=== PATIENT | male | born 1950 | race Caucasian/White ===

== ENCOUNTER → 2021-06-11 | Outpatient (CLI) | payer MEDICARE, BC ==
[~2021-06-11] MED LIST: ACETAMINOPHEN-H1 TA2 PO; AMBIEN10 MG PO; ATORVASTATIN CA80 MG PO; CREON 120000 U-1 ECC PO; CYCLOBENZAPRINE10 M1 PO; CYMBALTA60 M1 PO; DIAMOX 250MG250 MG PO; FLOMAX0.4 MG PO; GLUCOPHAGE PO; GOOD NEIGHBOR325 MG PO; MEDI-FIRST ASP325 MG PO; METFORMIN ER500 MG PO; MOBIC15 M1 PO; VIBRAMYCIN HYC100 MG PO; ZESTRIL10 M1 PO
== END ==
LOC: RAD 10:00
DX: R22.42 Localized swelling, mass and lump, left lower limb (principal)

== ENCOUNTER → 2021-07-13 | Outpatient (CLI) | payer MEDICARE, BC ==
[2021-07-13 18:39] LABS: ALBUMIN 3.5 g/dL (3.4-4.8); POTASSIUM 3.8 mmol/L (3.5-5.1)
[2021-07-13 18:40] LABS: CALCIUM 9.1 mg/dL (8.3-10.5)
[2021-07-13 18:42] LABS: TOTAL PROTEIN 6.7 g/dL (6.2-8.1)
[2021-07-13 18:47] LABS: BASO # 0.03 (0.02-0.10); EOS # 0.09 (0.04-0.40); EOS % 1.4 % (0.0-4.0); HEMATOCRIT 32.1 % (42.0-52.0); HEMOGLOBIN 9.9 g/dL (13.5-18.0); LYMPH# 1.18 (1.50-4.00); MEAN CELL VOLUME 96 fl (78-100); MEAN CORPUSCULAR HEMOGLOBIN 30 pg (27-31); MEAN CORPUSCULAR HGB CONC 31 g/dL (33-37); MEAN PLATELET VOLUME 9.6 fl (7.4-10.4); MONO # 0.56 (0.20-0.80); NEU # 4.77 (1.40-6.50); PLATELET COUNT 284 K/mm3 (130-400); RED BLOOD COUNT 3.34 M/mm3 (4.20-5.60); RED CELL DISTRIBUTION WIDTH 13.2 % (11.5-14.5); WHITE BLOOD COUNT 6.7 K/mm3 (4.8-10.8)
== END ==
LOC: LAB 17:56
PROVIDERS: Nurse Practitioner
DX: T81.42XA Infection following a procedure, deep incisional surgical site, initial encounter (principal)

== ENCOUNTER → 2021-07-16 | Outpatient (CLI) | payer MEDICARE, BC | LOC: LAB 06:13 | DX: T81.42XA Infection following a procedure, deep incisional surgical site, initial encounter (principal); R89.5 Abnormal microbiological findings in specimens from other organs, systems and tissues ==

== ENCOUNTER → 2021-07-20 | Outpatient (CLI) | payer MEDICARE, BC ==
[2021-07-20 06:32] LABS: BASO # 0.04 (0.02-0.10); EOS # 0.16 (0.04-0.40); EOS % 3.6 % (0.0-4.0); HEMATOCRIT 33.1 % (42.0-52.0); HEMOGLOBIN 10.4 g/dL (13.5-18.0); LYMPH# 0.87 (1.50-4.00); MEAN CELL VOLUME 94 fl (78-100); MEAN CORPUSCULAR HEMOGLOBIN 30 pg (27-31); MEAN CORPUSCULAR HGB CONC 31 g/dL (33-37); MEAN PLATELET VOLUME 9.6 fl (7.4-10.4); MONO # 0.53 (0.20-0.80); NEU # 2.87 (1.40-6.50); PLATELET COUNT 279 K/mm3 (130-400); RED BLOOD COUNT 3.53 M/mm3 (4.20-5.60); RED CELL DISTRIBUTION WIDTH 14.2 % (11.5-14.5); WHITE BLOOD COUNT 4.5 K/mm3 (4.8-10.8)
[2021-07-20 06:54] LABS: ALBUMIN 3.5 g/dL (3.4-4.8); POTASSIUM 3.9 mmol/L (3.5-5.1)
[2021-07-20 06:59] LABS: TOTAL PROTEIN 6.6 g/dL (6.2-8.1)
[2021-07-20 07:37] LABS: ERYTHROCYTE SEDIMENTATION RATE 34 mm/hr (0-20)
== END ==
LOC: LAB 06:08
PROVIDERS: Internal Medicine Infectious Disease
DX: T81.42XA Infection following a procedure, deep incisional surgical site, initial encounter (principal); R89.5 Abnormal microbiological findings in specimens from other organs, systems and tissues

== ENCOUNTER → 2021-07-23 | Outpatient (CLI) | payer MEDICARE, BC | LOC: LAB 07:48 | DX: T84.54XA Infection and inflammatory reaction due to internal left knee prosthesis, initial encounter (principal) ==

== ENCOUNTER → 2021-07-27 | Outpatient (CLI) | payer MEDICARE, BC ==
[2021-07-27 08:02] LABS: BASO # 0.07 (0.02-0.10); EOS # 0.15 (0.04-0.40); EOS % 3.3 % (0.0-4.0); HEMATOCRIT 36.5 % (42.0-52.0); HEMOGLOBIN 11.2 g/dL (13.5-18.0); LYMPH# 0.92 (1.50-4.00); MEAN CELL VOLUME 97 fl (78-100); MEAN CORPUSCULAR HEMOGLOBIN 30 pg (27-31); MEAN CORPUSCULAR HGB CONC 31 g/dL (33-37); MEAN PLATELET VOLUME 9.8 fl (7.4-10.4); MONO # 0.37 (0.20-0.80); NEU # 2.96 (1.40-6.50); PLATELET COUNT 236 K/mm3 (130-400); RED BLOOD COUNT 3.78 M/mm3 (4.20-5.60); RED CELL DISTRIBUTION WIDTH 14.6 % (11.5-14.5); WHITE BLOOD COUNT 4.5 K/mm3 (4.8-10.8)
[2021-07-27 08:03] LABS: ALBUMIN 3.7 g/dL (3.4-4.8); POTASSIUM 4.3 mmol/L (3.5-5.1)
[2021-07-27 08:04] LABS: CALCIUM 9.4 mg/dL (8.3-10.5)
[2021-07-27 08:07] LABS: TOTAL BILIRUBIN 1.1 mg/dL (0.2-1.2)
[2021-07-27 09:06] LABS: ERYTHROCYTE SEDIMENTATION RATE 27 mm/hr (0-20)
== END ==
LOC: LAB 07:27
PROVIDERS: Nurse Practitioner
DX: T81.42XA Infection following a procedure, deep incisional surgical site, initial encounter (principal); R89.5 Abnormal microbiological findings in specimens from other organs, systems and tissues

== ENCOUNTER → 2021-08-03 | Outpatient (CLI) | payer MEDICARE, BC ==
[2021-08-03 19:11] LABS: BASO # 0.08 K/mm3 (0.02-0.10); EOS # 0.11 K/mm3 (0.04-0.40); EOS % 2.4 % (0.0-4.0); HEMATOCRIT 38.8 % (42.0-52.0); LYMPH# 1.19 K/mm3 (1.50-4.00); MEAN CELL VOLUME 95 fl (78-100); MEAN CORPUSCULAR HEMOGLOBIN 29 pg (27-31); MEAN CORPUSCULAR HGB CONC 31 g/dL (33-37); MEAN PLATELET VOLUME 10.1 fl (7.4-10.4); MONO # 0.39 K/mm3 (0.20-0.80); NEU # 2.83 K/mm3 (1.40-6.50); PLATELET COUNT 253 K/mm3 (130-400); RED BLOOD COUNT 4.08 M/mm3 (4.20-5.60); RED CELL DISTRIBUTION WIDTH 14.4 % (11.5-14.5); WHITE BLOOD COUNT 4.6 K/mm3 (4.8-10.8)
[2021-08-03 19:15] LABS: ALBUMIN 3.9 g/dL (3.4-4.8); POTASSIUM 3.9 mmol/L (3.5-5.1); SODIUM 140 mmol/L (136-145)
[2021-08-03 19:16] LABS: CALCIUM 9.3 mg/dL (8.3-10.5)
[2021-08-03 19:17] LABS: GLUCOSE 118 mg/dL (75-110); TOTAL PROTEIN 7.1 g/dL (6.2-8.1)
[2021-08-03 19:18] LABS: CARBON DIOXIDE 18 mmol/L (23-31)
[2021-08-03 19:19] LABS: TOTAL BILIRUBIN 0.6 mg/dL (0.2-1.2)
[2021-08-03 19:23] LABS: AST-SGOT 13 U/L (5-34)
[2021-08-03 19:24] LABS: ALT/SGPT 12 U/L (0-55)
[2021-08-03 20:45] LABS: ERYTHROCYTE SEDIMENTATION RATE 20 mm/hr (0-20)
== END ==
LOC: LAB 17:55
PROVIDERS: Orthopaedic Surgery Sports Medicine
DX: T84.54XA Infection and inflammatory reaction due to internal left knee prosthesis, initial encounter (principal); R89.5 Abnormal microbiological findings in specimens from other organs, systems and tissues

== ENCOUNTER → 2021-08-10 | Outpatient (CLI) | payer MEDICARE, BC ==
[2021-08-10 18:39] LABS: BASO # 0.07 K/mm3 (0.02-0.10); EOS % 1.6 % (0.0-4.0); HEMATOCRIT 41.4 % (42.0-52.0); HEMOGLOBIN 12.8 g/dL (13.5-18.0); LYMPH# 1.29 K/mm3 (1.50-4.00); MEAN CELL VOLUME 95 fl (78-100); MEAN CORPUSCULAR HEMOGLOBIN 29 pg (27-31); MEAN CORPUSCULAR HGB CONC 31 g/dL (33-37); MONO # 0.49 K/mm3 (0.20-0.80); NEU # 4.41 K/mm3 (1.40-6.50); PLATELET COUNT 257 K/mm3 (130-400); RED BLOOD COUNT 4.36 M/mm3 (4.20-5.60); RED CELL DISTRIBUTION WIDTH 14.6 % (11.5-14.5); WHITE BLOOD COUNT 6.4 K/mm3 (4.8-10.8)
[2021-08-10 18:44] LABS: POTASSIUM 4.1 mmol/L (3.5-5.1); SODIUM 139 mmol/L (136-145)
[2021-08-10 18:45] LABS: CALCIUM 9.9 mg/dL (8.3-10.5)
[2021-08-10 18:46] LABS: GLUCOSE 119 mg/dL (75-110); TOTAL PROTEIN 7.2 g/dL (6.2-8.1)
[2021-08-10 18:47] LABS: CARBON DIOXIDE 19 mmol/L (23-31)
[2021-08-10 18:48] LABS: TOTAL BILIRUBIN 0.6 mg/dL (0.2-1.2)
[2021-08-10 18:52] LABS: AST-SGOT 13 U/L (5-34)
[2021-08-10 18:53] LABS: ALT/SGPT 12 U/L (0-55)
[2021-08-10 20:08] LABS: ERYTHROCYTE SEDIMENTATION RATE 16 mm/hr (0-20)
== END ==
LOC: LAB 18:02
PROVIDERS: Internal Medicine Infectious Disease
DX: T81.42XA Infection following a procedure, deep incisional surgical site, initial encounter (principal); T84.54XA Infection and inflammatory reaction due to internal left knee prosthesis, initial encounter

== ENCOUNTER → 2021-08-17 | Outpatient (CLI) | payer MEDICARE, BC ==
[2021-08-17 19:00] LABS: BASO # 0.04 K/mm3 (0.02-0.10); EOS # 0.15 K/mm3 (0.04-0.40); EOS % 2.6 % (0.0-4.0); HEMATOCRIT 42.2 % (42.0-52.0); LYMPH# 1.15 K/mm3 (1.50-4.00); MEAN CELL VOLUME 94 fl (78-100); MEAN CORPUSCULAR HEMOGLOBIN 29 pg (27-31); MEAN CORPUSCULAR HGB CONC 31 g/dL (33-37); MEAN PLATELET VOLUME 10.2 fl (7.4-10.4); MONO # 0.49 K/mm3 (0.20-0.80); NEU # 3.86 K/mm3 (1.40-6.50); PLATELET COUNT 243 K/mm3 (130-400); RED BLOOD COUNT 4.48 M/mm3 (4.20-5.60); RED CELL DISTRIBUTION WIDTH 14.3 % (11.5-14.5); WHITE BLOOD COUNT 5.7 K/mm3 (4.8-10.8)
[2021-08-17 19:06] LABS: POTASSIUM 4.1 mmol/L (3.5-5.1)
[2021-08-17 19:09] LABS: TOTAL PROTEIN 7.2 g/dL (6.2-8.1)
[2021-08-17 19:10] LABS: TOTAL BILIRUBIN 0.5 mg/dL (0.2-1.2)
[2021-08-17 20:56] LABS: ERYTHROCYTE SEDIMENTATION RATE 5 mm/hr (0-20)
== END ==
LOC: LAB 17:58
PROVIDERS: Internal Medicine Infectious Disease
DX: T84.54XA Infection and inflammatory reaction due to internal left knee prosthesis, initial encounter (principal)

== ENCOUNTER 2021-08-19 17:52 | Outpatient (RCR) | payer MEDICARE, BC ==
[2021-07-13 18:30] VITALS: BP 118/59
[2021-07-13 20:00] VITALS: BP 120/55
[2021-07-14 06:19] VITALS: BP 133/57
[2021-07-14 08:00] VITALS: BP 145/60
[2021-07-14 17:59] VITALS: BP 121/66
[2021-07-14 19:30] VITALS: BP 117/54
[2021-07-15 06:20] VITALS: BP 114/56
[2021-07-15 08:10] VITALS: BP 133/78
[2021-07-15 18:00] VITALS: BP 103/48
--- NOTE | 2021-07-15 18:00 | NUR ---
Ice pack provided to L knee per request. Encouraged PO fluids. B/P 103/48. Denies Sx.
[2021-07-15 19:24] VITALS: BP 121/76
[2021-07-16 06:25] VITALS: BP 122/67
[2021-07-16 08:00] VITALS: BP 130/61
[2021-07-16 17:53] VITALS: BP 108/52
[2021-07-16 19:54] VITALS: BP 136/60
--- NOTE | 2021-07-17 06:15 | NUR ---
Ice pack and warm blanket provided.
[2021-07-17 06:24] VITALS: BP 117/53
[2021-07-17 07:50] VITALS: BP 125/70
[2021-07-17 17:35] VITALS: BP 106/48
[2021-07-17 19:28] VITALS: BP 110/60
[2021-07-18 06:17] VITALS: BP 123/59
[2021-07-18 18:15] VITALS: BP 99/45
[2021-07-18 19:18] VITALS: BP 103/50
[2021-07-19 06:14] VITALS: BP 135/62
[2021-07-19 17:35] VITALS: BP 118/72
[2021-07-20 06:18] VITALS: BP 121/66
--- NOTE | 2021-07-20 07:53 | NUR ---
patient's labwork results faxed to per order.
--- NOTE | 2021-07-20 09:45 | NUR ---
had left message with 's office regarding patient's vancomycin trough. received call back from komal cotto. new orders received to change patient's dose to 2gm one time daily and recheck trough 07/23. patient's called and notified of new orders. patient and were very happy and relieved about the change in frequency to one time a day.
[2021-07-21 07:51] VITALS: BP 131/67
[2021-07-21 09:55] VITALS: BP 142/67
[2021-07-22 07:57] VITALS: BP 117/58
[2021-07-22 10:18] VITALS: BP 135/69
[2021-07-23 07:49] VITALS: BP 124/78
[2021-07-23 10:05] VITALS: BP 116/52
[2021-07-24 07:30] VITALS: BP 145/69
[2021-07-24 09:09] VITALS: BP 121/58
[2021-07-25 07:33] VITALS: BP 150/64
[2021-07-25 08:50] VITALS: BP 106/55
[2021-07-25 19:26] VITALS: BP 123/63
[2021-07-25 20:25] VITALS: BP 112/58
[2021-07-26 10:02] VITALS: BP 120/54
[2021-07-26 19:35] VITALS: BP 109/40
[2021-07-26 20:47] VITALS: BP 114/55
[2021-07-27 08:41] VITALS: BP 110/68
[2021-07-27 19:51] VITALS: BP 127/69
[2021-07-27 19:52] VITALS: BP 127/69
--- NOTE | 2021-07-27 20:55 | NUR ---
Pt. arrived at 193 for Vanco infusion. Pt. roomed in . PICC accessed per protocol. Both ports with brisk blood return and flushed easily. Vanco infusion completed. Pt. reports he will return tomorrow a.m. for another infusion. Pt. discharged from outpatient visit at 2054.
[2021-07-28 07:29] VITALS: BP 133/60
[2021-07-28 08:26] VITALS: BP 137/66
[2021-07-28 19:28] VITALS: BP 116/61
[2021-07-28 20:34] VITALS: BP 102/61
[2021-07-29 07:35] VITALS: BP 120/55
[2021-07-29 08:35] VITALS: BP 127/57
[2021-07-29 19:30] VITALS: BP 108/53
[2021-07-29 20:30] VITALS: BP 110/67
[2021-07-30 08:43] VITALS: BP 129/72
[2021-07-31 16:18] VITALS: BP 102/58
[2021-08-01 18:02] VITALS: BP 96/58
[2021-08-02 18:00] VITALS: BP 114/58
[2021-08-03 18:26] VITALS: BP 120/62
[2021-08-04 18:05] VITALS: BP 112/63
[2021-08-05 16:00] VITALS: BP 122/75
[2021-08-06 18:00] VITALS: BP 127/69
[2021-08-07 18:10] VITALS: BP 107/65
[2021-08-08 18:00] VITALS: BP 110/70
[2021-08-09 17:55] VITALS: BP 104/65
[2021-08-10 18:00] VITALS: BP 94/59
[2021-08-11 18:00] VITALS: BP 103/64
[2021-08-12 18:00] VITALS: BP 136/68
[2021-08-13 18:04] VITALS: BP 111/60
[2021-08-14 18:17] VITALS: BP 123/70
[2021-08-15 18:12] VITALS: BP 127/68
[2021-08-16 18:04] VITALS: BP 134/70
[2021-08-17 18:12] VITALS: BP 117/66
[2021-08-18 18:10] VITALS: BP 102/65
[~2021-08-19] VITALS: Ht 185.4 cm; Wt 93.2 kg
[~2021-08-19 17:52] MED LIST changes: -ACETAMINOPHEN-H1 TA2 PO; -CREON 120000 U-1 ECC PO; -CYCLOBENZAPRINE10 M1 PO; -MEDI-FIRST ASP325 MG PO; -METFORMIN ER500 MG PO; -VIBRAMYCIN HYC100 MG PO
[2021-08-19 18:04] VITALS: BP 121/69
--- NOTE | 2021-08-20 13:35 | NUR ---
F/U WITH INFECTIOUS DISEASE TODAY. ORDER RECEIVED TO DC PICC TODAY. PATIENT CALLS TO REPORT HE WAS SENT TO [facility] TO HAVE PICC REMOVED.
== END 2021-08-19 20:00 | disposition home or self-care (01) ==
LOC: AMSURD 17:52
DX: T81.42XA Infection following a procedure, deep incisional surgical site, initial encounter (principal); B95.7 Other staphylococcus as the cause of diseases classified elsewhere
CPT/HCPCS: J0878; J3370; J7040; J7050

== ENCOUNTER 2021-08-25 17:49 | Emergency (ER) | payer MEDICARE, BC ==
[~2021-08-25] VITALS: Ht 185.4 cm; Wt 90.9 kg
[2021-08-25] MEDS ORDERED: VIBRAMYCIN HYC100 MG PO (18:19)
[2021-08-25] MEDS ORDERED: METFORMIN ER500 MG PO (18:20)
[2021-08-25] MEDS ORDERED: ACETAMINOPHEN-H1 TA2 PO (18:21)
[2021-08-25] MEDS ORDERED: MEDI-FIRST ASP325 MG PO (18:21)
[2021-08-25] MEDS ORDERED: CREON 120000 U-1 ECC PO (18:22)
[2021-08-25] MEDS ORDERED: CYCLOBENZAPRINE10 M1 PO (20:14)
[2021-08-25 20:34] VITALS: BP 132/78
== END 2021-08-25 20:34 | disposition home or self-care (01) ==
LOC: ED 17:49
DX: M54.50 Low back pain, unspecified (principal); F32.A Depression, unspecified; E78.5 Hyperlipidemia, unspecified; E11.9 Type 2 diabetes mellitus without complications; I10 Essential (primary) hypertension; G47.00 Insomnia, unspecified; Z98.1 Arthrodesis status; Z79.84 Long term (current) use of oral hypoglycemic drugs; Z79.899 Other long term (current) drug therapy
CPT/HCPCS: J1885

== ENCOUNTER → 2021-09-07 | Outpatient (CLI) | payer MEDICARE, BC ==
[~2021-09-07] MED LIST changes: +ACETAMINOPHEN-H1 TA2 PO; +CREON 120000 U-1 ECC PO; +CYCLOBENZAPRINE10 M1 PO; +MEDI-FIRST ASP325 MG PO; +METFORMIN ER500 MG PO; +VIBRAMYCIN HYC100 MG PO
[2021-09-07 15:38] LABS: BASO # 0.05 K/mm3 (0.02-0.10); EOS # 0.06 K/mm3 (0.04-0.40); HEMATOCRIT 44.4 % (42.0-52.0); HEMOGLOBIN 13.9 g/dL (13.5-18.0); LYMPH# 1.08 K/mm3 (1.50-4.00); MEAN CELL VOLUME 93 fl (78-100); MEAN CORPUSCULAR HEMOGLOBIN 29 pg (27-31); MEAN CORPUSCULAR HGB CONC 31 g/dL (33-37); MEAN PLATELET VOLUME 9.8 fl (7.4-10.4); NEU # 4.42 K/mm3 (1.40-6.50); PLATELET COUNT 228 K/mm3 (130-400); RED BLOOD COUNT 4.76 M/mm3 (4.20-5.60); RED CELL DISTRIBUTION WIDTH 14.6 % (11.5-14.5)
[2021-09-07 15:49] LABS: ALBUMIN 3.9 g/dL (3.4-4.8)
[2021-09-07 15:51] LABS: CALCIUM 9.3 mg/dL (8.3-10.5)
[2021-09-07 15:52] LABS: TOTAL PROTEIN 6.8 g/dL (6.2-8.1)
[2021-09-07 15:54] LABS: TOTAL BILIRUBIN 0.6 mg/dL (0.2-1.2)
[2021-09-07 16:48] LABS: ERYTHROCYTE SEDIMENTATION RATE 8 mm/hr (0-20)
== END ==
LOC: LAB 15:26
PROVIDERS: Nurse Practitioner
DX: B99.9 Unspecified infectious disease (principal)

== ENCOUNTER → 2021-10-06 | Outpatient (CLI) | payer MEDICARE, BC ==
[2021-10-06 12:02] LABS: BASO # 0.05 K/mm3 (0.02-0.10); EOS # 0.11 K/mm3 (0.04-0.40); EOS % 2.2 % (0.0-4.0); HEMATOCRIT 47.9 % (42.0-52.0); LYMPH# 1.32 K/mm3 (1.50-4.00); MEAN CELL VOLUME 93 fl (78-100); MEAN CORPUSCULAR HEMOGLOBIN 29 pg (27-31); MEAN CORPUSCULAR HGB CONC 31 g/dL (33-37); MEAN PLATELET VOLUME 9.6 fl (7.4-10.4); NEU # 3.03 K/mm3 (1.40-6.50); PLATELET COUNT 211 K/mm3 (130-400); RED BLOOD COUNT 5.18 M/mm3 (4.20-5.60); RED CELL DISTRIBUTION WIDTH 14.9 % (11.5-14.5)
[2021-10-06 13:27] LABS: ERYTHROCYTE SEDIMENTATION RATE 3 mm/hr (0-20)
== END ==
LOC: LAB 11:47
PROVIDERS: Physician Assistant
DX: M25.562 Pain in left knee (principal)

== ENCOUNTER → 2022-03-15 | Outpatient (CLI) | payer MEDICARE, BC | LOC: RAD 18:10 | DX: R51.9 Headache, unspecified (principal) | CPT/HCPCS: A9585 ==

== ENCOUNTER → 2022-04-12 | Outpatient (CLI) | payer MEDICARE, BC | LOC: VAS 12:42 → RAD 13:00 | DX: M79.605 Pain in left leg (principal); R22.42 Localized swelling, mass and lump, left lower limb; Z96.651 Presence of right artificial knee joint ==

== ENCOUNTER → 2022-05-10 | Outpatient (CLI) | payer MEDICARE, BC ==
[2022-05-10 18:56] LABS: BASO # 0.05 K/mm3 (0.02-0.10); EOS # 0.08 K/mm3 (0.04-0.40); EOS % 1.6 % (0.0-4.0); HEMATOCRIT 41.2 % (42.0-52.0); LYMPH# 0.88 K/mm3 (1.50-4.00); MEAN CELL VOLUME 94 fl (78-100); MEAN CORPUSCULAR HEMOGLOBIN 30 pg (27-31); MEAN CORPUSCULAR HGB CONC 32 g/dL (33-37); MEAN PLATELET VOLUME 9.9 fl (7.4-10.4); MONO # 0.51 K/mm3 (0.20-0.80); NEU # 3.35 K/mm3 (1.40-6.50); PLATELET COUNT 260 K/mm3 (130-400); RED CELL DISTRIBUTION WIDTH 14.5 % (11.5-14.5); WHITE BLOOD COUNT 4.9 K/mm3 (4.8-10.8)
[2022-05-10 20:00] LABS: ERYTHROCYTE SEDIMENTATION RATE 21 mm/hr (0-20)
== END ==
LOC: LAB 17:21
PROVIDERS: Family Medicine
DX: Z45.2 Encounter for adjustment and management of vascular access device (principal); T84.54XA Infection and inflammatory reaction due to internal left knee prosthesis, initial encounter

== ENCOUNTER → 2022-06-15 | Outpatient (CLI) | payer MEDICARE, BC ==
[2022-06-15 10:57] LABS: BASO # 0.05 K/mm3 (0.02-0.10); EOS # 0.12 K/mm3 (0.04-0.40); EOS % 2.6 % (0.0-4.0); HEMATOCRIT 45.7 % (42.0-52.0); HEMOGLOBIN 14.4 g/dL (13.5-18.0); MEAN CELL VOLUME 93 fl (78-100); MEAN CORPUSCULAR HEMOGLOBIN 29 pg (27-31); MEAN CORPUSCULAR HGB CONC 32 g/dL (33-37); MEAN PLATELET VOLUME 9.9 fl (7.4-10.4); MONO # 0.31 K/mm3 (0.20-0.80); NEU # 3.04 K/mm3 (1.40-6.50); PLATELET COUNT 230 K/mm3 (130-400); RED CELL DISTRIBUTION WIDTH 13.6 % (11.5-14.5); WHITE BLOOD COUNT 4.5 K/mm3 (4.8-10.8)
[2022-06-15 12:02] LABS: ERYTHROCYTE SEDIMENTATION RATE 40 mm/hr (0-20)
== END ==
LOC: LAB 10:44
PROVIDERS: Orthopaedic Surgery Sports Medicine
DX: M25.462 Effusion, left knee (principal); M25.562 Pain in left knee; Z96.652 Presence of left artificial knee joint

== ENCOUNTER → 2024-10-11 | Outpatient (CLI) | payer MEDICARE, BC ==
[~2024-10-11] MED LIST changes: +BENTYL 20MG20 MG/TAB PO; +ECOTRIN325 M2 PO; +KETOROLAC10 MG PO; +MELOXICAM15 MG PO; +PANTOPRAZOLE SO40 MG PO; +TRAMADOL 50 MG TAB PO; +VESICARE10 MG PO
== END ==
LOC: AMSURD 11:32
DX: Z01.818 Encounter for other preprocedural examination (principal)